=== PATIENT | male | born 1960 | race Caucasian/White ===

== ENCOUNTER 2017-08-12 12:07 | Emergency (ER) | payer OTHER ==
[2017-08-12] MEDS ORDERED: Iohexol 240 (50 ml) PO STA (13:00)
--- NOTE | 2017-08-12 13:14 | C.PDOC ---
History Of Present Illness <Shireen Sanchez - Last Filed: 08/12/17 13:15> <LopezMandy - Last Filed: 08/12/17 16:34> 57 y/o male presents to ED with c/o sharp right flank pain worse with movement for 1 month. Patient states he saw PMD had work up as outpatient and was told he had shadow on right kidney but is unsure what it was. Patient states pain has been constant since which prompted visit to ED today. Patient denies nausea , vomiting, dysuria, fever, chills or any other complaints at this time. ( KiannaMoira linoivis Lovett) History Per: Patient History/Exam Limitations: no limitations Onset/Duration Of Symptoms: Days Current Symptoms Are (Timing): Still Present <Shireen Sanchez - Last Filed: 08/12/17 13:15> <LopezMandy Yasir - Last Filed: 08/12/17 16:34> Time Seen by Provider: 08/12/17 12:48 Chief Complaint (Nursing): Abdominal Pain Past Medical History Reviewed: Historical Data, Nursing Documentation, Vital Signs - Medical History PMH: No Chronic Diseases Surgical History: No Surg Hx Family History: States: No Known Family Hx - Social History Hx Alcohol Use: No Hx Substance Use: No <Shireen Sanchez - Last Filed: 08/12/17 13:15> <JohnMandy Yasir - Last Filed: 08/12/17 16:34> Vital Signs: Last Vital Signs Temp 97.6 F 08/12/17 14:18 Pulse 62 08/12/17 14:18 Resp 18 08/12/17 14:18 BP 108/67 08/12/17 14:18 Pulse Ox 100 08/12/17 14:18 Review Of Systems Constitutional: Negative for: Fever, Chills Gastrointestinal: Positive for: Other (flank pain). Negative for: Nausea, Vomiting, Diarrhea Genitourinary: Negative for: Dysuria Skin: Negative for: Rash <Shireen Sanchez - Last Filed: 08/12/17 13:15> Physical Exam - Physical Exam Appears: Non-toxic, No Acute Distress Skin: Warm, Dry, No Rash Head: Atraumatic, Normacephalic Oral Mucosa: Moist Neck: Normal ROM, Supple Cardiovascular: Rhythm Regular Respiratory: Normal Breath Sounds, No Rales, No Rhonchi, No Wheezing Gastrointestinal/Abdominal: Soft, Tenderness (On palpation to right mid abdomen) , No Guarding, No Rebound Back: CVA Tenderness (Right sided), No Paraspinal Tenderness Extremity: Normal ROM, Capillary Refill (<2 seconds) Neurological/Psych: Oriented x3, Normal Speech, Normal Cognition, Normal Motor, Normal Sensation <Shireen Sanchez - Last Filed: 08/12/17 13:15> ED Course And Treatment O2 Sat by Pulse Oximetry: 99 (RA) Pulse Ox Interpretation: Normal <Shireen Sanchez - Last Filed: 08/12/17 13:15> - Laboratory Results Result Diagrams: 08/12/17 13:14 08/12/17 13:14 <Mandy Lopez - Last Filed: 08/12/17 16:34> Medical Decision Making <Shireen Sanchez - Last Filed: 08/12/17 13:15> <Mandy Lopez - Last Filed: 08/12/17 16:34> Medical Decision Making: Plan: CT abd/pelvis, Blood work and UA ordered. Iohexol administered (Shireen Sanchez) Disposition <Shireen Sanchez - Last Filed: 08/12/17 13:15> Discussed With : Everett Van Counseled Patient/Family Regarding: Diagnosis, Need For Followup, Rx Given - Disposition Disposition Time: 16:30 - POA Present On Arrival: None <Mandy Lopez - Last Filed: 08/12/17 16:34> - Disposition Referrals: Everett Van MD [Staff Provider] - Disposition: HOME/ ROUTINE Condition: STABLE Prescriptions: Ibuprofen [Motrin] 600 mg PO TID #15 tab Forms: [employer] (Frisian) - Clinical Impression Clinical Impression: Musculoskeletal pain - Scribe Statement The provider has reviewed the documentation as recorded by the Scribe <Shireen Sanchez - Last Filed: 08/12/17 13:15> <Mandy Lopez - Last Filed: 08/12/17 16:34> - Scribe Statement Hasmukh Jade All medical record entries made by the Scribe were at my direction and personally dictated by me. I have reviewed the chart and agree that the record accurately reflects my personal performance of the history, physical exam, medical decision making, and the department course for this patient. I have also personally directed, reviewed, and agree with the discharge instructions and disposition. (Shireen Sanchez) Addendum <Shireen Sanchez - Last Filed: 08/12/17 13:15> <Mandy Lopez - Last Filed: 08/12/17 16:34> Addendum: 08/12/17 16:24 Patient endorsed to me by Dr. Sanchez. Patient presents c/o right flank pain X 1 month. Pain is dull, increases with movement and lifting, no abdominal pain, no NVD, no symptoms. On exam Chest clear Positive right CVA tenderness (mild) Positive tenderness at right mid axillary line/flank. Labs no white count no hematuria Plan D/C to f/u with PMD Pain medication (Mandy Lopez)
[2017-08-12 13:23] LABS: BASO % 0.6 % (0.0-2.0); EOS # 0.2 K/uL (0.0-0.7); EOS % 3.7 % (0.0-4.0); HEMOGLOBIN 14.8 g/dL (12.0-18.0); LYMPH # 1.9 K/uL (1.0-4.3); MEAN CELL VOLUME 89.2 fL (80.0-94.0); MEAN CORPUSCULAR HEMOGLOBIN 30.5 pg (27.0-31.0); MEAN CORPUSCULAR HGB CONC 34.2 g/dL (33.0-37.0); MEAN PLATELET VOLUME 11.1 fL (7.2-11.7); MONO # 0.5 K/uL (0.0-0.8); MONO % 8.5 % (0.0-10.0); NEUT # 2.8 K/uL (1.8-7.0); NEUT % 52.2 % (50.0-75.0); RBC 4.85 Mil/uL (4.40-5.90); RED CELL DISTRIBUTION WIDTH 13.5 % (11.5-14.5); WHITE BLOOD COUNT 5.3 K/uL (4.8-10.8)
[2017-08-12 13:25] LABS: URINE BILIRUBIN NEGATIVE (NEGATIVE); URINE BLOOD NEGATIVE (NEGATIVE); URINE CLARITY Clear (Clear); URINE COLOR Colorless (YELLOW); URINE GLUCOSE (UA) NORMAL (Normal); URINE LEUKOCYTE ESTERASE NEG Leu/uL (Negative); URINE PROTEIN NEGATIVE (NEGATIVE); URINE UROBILINOGEN NORMAL mg/dL (0.2-1.0)
[2017-08-12] MEDS ORDERED: Iohexol 240 (50 ml) ONE (13:25)
[2017-08-12 13:39] LABS: ALB/GLOB RATIO 1.3 (1.0-2.1); ALBUMIN 4.3 g/dL (3.5-5.0); ALT/SGPT 18 U/L (21-72); AST/SGOT 28 U/L (17-59); BLOOD UREA NITROGEN 13 mg/dL (9-20); CALCIUM 8.9 mg/dl (8.6-10.4); GFR AFRICAN-AMERICAN > 60; GFR NON-AFRICAN AMERICAN > 60; LIPASE 117 U/L (23-300)
[2017-08-12 14:24] VITALS: RESP 18; O2SAT 100
[2017-08-12] MEDS ORDERED: Iodixanol 320 MG/ML 100 ML BOTTLE IV ONE (14:48)
--- NOTE | 2017-08-12 16:07 | CT ---
PROCEDURE: CT Abdomen and Pelvis with contrast HISTORY: abd pain COMPARISON: None. TECHNIQUE: Following oral and intravenous contrast administration, a CT examination of the abdomen and pelvis performed from the domes of the diaphragms to the symphysis pubis with reformatted datasets provided not only axial but also sagittal and coronal series. Contrast dose: Visipaque 320, 100 cc Radiation dose: Total exam DLP = 675.75 mGy-cm. This CT exam was performed using one or more of the following dose reduction techniques: Automated exposure control, adjustment of the mA and/or kV according to patient size, and/or use of iterative reconstruction technique. FINDINGS: Restrained motion related artifacts noted. LOWER THORAX: Trace emphysematous changes are noted at the right lower lobe inferolaterally, and there is a small hiatal hernia with lung bases otherwise unremarkable appearing. LIVER: Unremarkable. No gross lesion or ductal dilatation. GALLBLADDER AND BILE DUCTS: Contracted, no radiodense cholelithiasis. PANCREAS: Unremarkable. No gross lesion or ductal dilatation. SPLEEN: Unremarkable. ADRENALS: Unremarkable. No mass. KIDNEYS AND URETERS: 4 mm intrarenal calculus mid to lower pole right kidney. No hydronephrosis bilaterally. No solid mass. VASCULATURE: Unremarkable. No aortic aneurysm. BOWEL: The stomach is mildly distended with retained oral contrast material and a bit of food. No bowel obstruction is appreciated throughout small and large bowel loops with [id number] fecal loading throughout the colon. The distal descending colon and proximal to mid sigmoid colon segments appear collapsed limiting evaluation of the wall. Mural thickening is difficult to exclude here. No pericholecystic fluid collection or reactive changes associated to define segmental colitis. . APPENDIX: Normal appendix. PERITONEUM: Unremarkable. No free fluid. No free air. LYMPH NODES: Unremarkable. No enlarged lymph nodes. BLADDER: Unremarkable. REPRODUCTIVE: Enlarged prostate gland. BONES: No acute fracture. OTHER FINDINGS: None. IMPRESSION: 1. Collapse of the distal ascending and proximal to mid sigmoid colon limits evaluation of the wall. Limited mural thickening is difficult to exclude but there is no pericholecystic reaction or fluid collection to define segmental colitis. Clinically correlate. Remainder of the bowel is unremarkable including the appendix. 2. 4 mm intrarenal calculus mid to lower pole right kidney, nonobstructive. 3. Lesser additional findings as per above.
[2017-08-12 16:40] VITALS: BP 106/68; PULSE 61; TEMP 98.1
== END 2017-08-12 16:59 | disposition home or self-care (01) ==
LOC: C.ER 12:07
DX: M79.1 Myalgia (principal)
CPT/HCPCS: 74177; 80053; 81001; 83690; 85025; 96374; 99285; J1885; Q9966; Q9967

== ENCOUNTER 2017-12-17 19:05 | Emergency (ER) | payer OTHER ==
[2017-12-17 19:17] VITALS: BP 102/68; PULSE 67; RESP 20; TEMP 97.4; O2SAT 98
[2017-12-17] MEDS ORDERED: Acetaminophen-Codeine 300/30 mg Tab PO STA (19:33)
[2017-12-17] MEDS ORDERED: Acetaminophen-Codeine 300/30 mg Tab PO ONE (19:52)
--- NOTE | 2017-12-17 20:12 | C.PDOC ---
History Of Present Illness 57 year old male presents to the emergency department with complaints of dental pain. Time Seen by Provider: 12/17/17 19:22 Chief Complaint (Nursing): Dental Pain History Per: Patient History/Exam Limitations: no limitations Onset/Duration Of Symptoms: Hrs Current Symptoms Are (Timing): Still Present Quality: Positive for: "Pain" Past Medical History Reviewed: Historical Data, Nursing Documentation, Vital Signs Vital Signs: Last Vital Signs Temp 97.4 F L 12/17/17 19:12 Pulse 67 12/17/17 19:12 Resp 20 12/17/17 19:12 BP 102/68 12/17/17 19:12 Pulse Ox 98 12/17/17 22:18 - Medical History PMH: No Chronic Diseases Surgical History: No Surg Hx Family History: States: No Known Family Hx - Social History Hx Alcohol Use: No Hx Substance Use: No Review Of Systems Except As Marked, All Systems Reviewed And Found Negative. ENT: Positive for: Mouth Pain (dental pain) Neurological: Negative for: Weakness, Numbness Physical Exam - Physical Exam Appears: Non-toxic, No Acute Distress Skin: Warm, Dry Head: Atraumatic, Normacephalic Eye(s): bilateral: Normal Inspection Oral Mucosa: Moist Tongue: Normal Appearing, No Swelling Lips: Normal Appearing, No Swelling Teeth: Caries (right upper second molar), No Other (abscess) Gingiva: No Swelling Neck: Normal, Supple Chest: Symmetrical Neurological/Psych: Oriented x3, Normal Speech, Normal Cognition ED Course And Treatment O2 Sat by Pulse Oximetry: 98 (RA) Pulse Ox Interpretation: Normal Progress Note: Plan: Penicillin. Tylenol w/Codeine. Patient is clear for discharge and advised to follow-up with a dentist. Disposition - Disposition Referrals: [facility] [Outside] [facility] [employer] [facility] [Outside] Disposition: HOME/ ROUTINE Disposition Time: 20:09 Condition: STABLE Additional Instructions: Follow up with PMD within 1-2 days. Return to ED if feel worse. Prescriptions: Ibuprofen [Motrin Tab] 600 mg PO Q8 #30 tab Penicillin VK [Penicillin VK Tab] 500 mg PO Q6 #28 tab Acetaminophen with Codeine [Tylenol with Codeine #3 Tablet] 1 each PO .Q4-6H # 20 tablet Instructions: Dental Pain (DC) Forms: [employer] ([facility] - Clinical Impression Clinical Impression: Dental caries - PA / DECK ENGINE OPERATOR / Resident Statement MD/DO has reviewed & agrees with the documentation as recorded. - Scribe Statement The provider has reviewed the documentation as recorded by the Scribe (Alton Vargas) All medical record entries made by the Scribe were at my direction and personally dictated by me. I have reviewed the chart and agree that the record accurately reflects my personal performance of the history, physical exam, medical decision making, and the department course for this patient. I have also personally directed, reviewed, and agree with the discharge instructions and disposition.
== END 2017-12-17 20:24 | disposition home or self-care (01) ==
LOC: C.ER 19:05
DX: K02.9 Dental caries, unspecified (principal)

== ENCOUNTER 2018-04-16 13:46 | Observation (INO) | payer OTHER ==
[2018-04-16] MEDS: Sodium Chloride 0.9% 1,000 ML IV SCH (15:06)
[2018-04-16 15:20] LABS: BASO % 0.4 % (0.0-2.0); EOS # 0.2 K/uL (0.0-0.7); EOS % 2.3 % (0.0-4.0); HEMOGLOBIN 14.4 g/dL (12.0-18.0); LYMPH # 2.5 K/uL (1.0-4.3); LYMPH % 37.4 % (20.0-40.0); MEAN CELL VOLUME 89.3 fL (80.0-94.0); MEAN CORPUSCULAR HEMOGLOBIN 29.8 pg (27.0-31.0); MEAN CORPUSCULAR HGB CONC 33.3 g/dL (33.0-37.0); MEAN PLATELET VOLUME 10.8 fL (7.2-11.7); MONO # 0.5 K/uL (0.0-0.8); MONO % 7.7 % (0.0-10.0); NEUT # 3.4 K/uL (1.8-7.0); NEUT % 52.2 % (50.0-75.0); NRBC % 0.1 % (0.0-2.0); RBC 4.84 Mil/uL (4.40-5.90); RED CELL DISTRIBUTION WIDTH 13.5 % (11.5-14.5); WHITE BLOOD COUNT 6.6 K/uL (4.8-10.8)
[2018-04-16 15:35] LABS: PROTHROMBIN TIME 11.1 SECONDS (9.7-12.2)
[2018-04-16 15:46] LABS: ALB/GLOB RATIO 1.5 (1.0-2.1); ALBUMIN 4.4 g/dL (3.5-5.0); ALT/SGPT 27 U/L (21-72); AST/SGOT 23 U/L (17-59); BLOOD UREA NITROGEN 16 mg/dL (9-20); CALCIUM 8.8 mg/dl (8.6-10.4); GFR NON-AFRICAN AMERICAN > 60
--- NOTE | 2018-04-16 15:48 | CT ---
Date of service: 04/16/2018 PROCEDURE: CT HEAD WITHOUT CONTRAST. HISTORY: transient left sided weakness COMPARISON: None available. TECHNIQUE: Axial computed tomography images were obtained through the head/brain without intravenous contrast. Radiation dose: Total exam DLP = 1088.67 mGy-cm. This CT exam was performed using one or more of the following dose reduction techniques: Automated exposure control, adjustment of the mA and/or kV according to patient size, and/or use of iterative reconstruction technique. FINDINGS: HEMORRHAGE: No intracranial hemorrhage. BRAIN: No mass effect or edema. The santillan-white matter differentiation appears intact. Please note that MRI with diffusion imaging is more sensitive in the detection of acute ischemic event. VENTRICLES: No hydrocephalus. CALVARIUM: Unremarkable. PARANASAL SINUSES: Unremarkable as visualized. No significant inflammatory changes. MASTOID AIR CELLS: Unremarkable as visualized. No inflammatory changes. OTHER FINDINGS: None. IMPRESSION: No acute intracranial pathology identified.
--- NOTE | 2018-04-16 16:10 | RAD ---
HISTORY: Code Stroke COMPARISON: None available. TECHNIQUE: Chest PA and lateral FINDINGS: LUNGS: No focal consolidation. Please note that chest x-ray has limited sensitivity for the detection of pulmonary masses. PLEURA: No significant pleural effusion identified. No definite pneumothorax . CARDIOVASCULAR: Heart size appears within normal limits. No atherosclerotic calcification present. OSSEOUS STRUCTURES: Degenerative changes of the spine. VISUALIZED UPPER ABDOMEN: Unremarkable. OTHER FINDINGS: None. IMPRESSION: No focal consolidation.
--- NOTE | 2018-04-16 16:17 | C.PDOC ---
History Of Present Illness 58 year old male presents to the ED for evaluation. Patient states that he woke up from sleep three days ago and felt like there was "no blood going to his head." Patient reports experiencing dizziness, lightheadedness and left-sided facial, arm and leg weakness. Patient woke up with dizziness the next morning, but did not experience weakness. Patient states the weakness has been intermittent since. Patient reports feeling numbness to the left side of his face, states he does not feel the same sensation on both sides of his face. Patient also complains of numbness to right third finger. Patient was evaluated by a Nurse Practitioner in Dr. Van's office today and referred to the ED. Patient denies past medical history, but thinks he my have high cholesterol. Patient denies nausea, vomiting. Time Seen by Provider: 04/16/18 14:48 Chief Complaint (Nursing): Back Pain History Per: Patient History/Exam Limitations: no limitations Onset/Duration Of Symptoms: Days, Intermittent Episodes Current Symptoms Are (Timing): Still Present Additional History Per: Patient Past Medical History Reviewed: Historical Data, Nursing Documentation, Vital Signs Vital Signs: Last Vital Signs Temp 97.9 F 04/16/18 14:25 Pulse 70 04/16/18 14:25 Resp 17 04/16/18 14:25 BP 111/70 04/16/18 14:25 Pulse Ox 98 04/16/18 14:25 - Medical History PMH: No Chronic Diseases Surgical History: No Surg Hx Family History: States: Unknown Family Hx - Social History Hx Alcohol Use: No Hx Substance Use: No - Immunization History Hx Tetanus Toxoid Vaccination: No Hx Influenza Vaccination: Yes Hx Pneumococcal Vaccination: No Review Of Systems Neurological: Positive for: Numbness (right third finger), Dizziness, Other (lightheaded) Physical Exam - Physical Exam Appears: Non-toxic, No Acute Distress Skin: Normal Color, Warm, Dry Head: Atraumatic, Normacephalic Eye(s): bilateral: Normal Inspection Oral Mucosa: Moist Neck: Supple Chest: Symmetrical, No Deformity, No Tenderness Cardiovascular: Rhythm Regular, No Murmur, No Other (carotid bruit) Respiratory: Normal Breath Sounds, No Rales, No Rhonchi, No Wheezing Extremity: Normal ROM, Capillary Refill (less than 2 seconds ) Neurological/Psych: Oriented x3, Normal Speech, Normal Cognition, Normal Motor, Other (subjective decreased sensation to left side of face ) ED Course And Treatment - Laboratory Results Result Diagrams: 04/16/18 15:16 04/16/18 15:16 Lab Interpretation: Normal ECG: Interpreted By Me ECG Rhythm: Sinus Rhythm ECG Interpretation: No Acute Changes O2 Sat by Pulse Oximetry: 98 (on RA) Pulse Ox Interpretation: Normal - Radiology CXR: Viewed By Me, Read By Radiologist CXR Interpretation: Yes: No Acute Disease - CT Scan/US CT Head Other Rad Studies (CT/US): Read By Radiologist, Radiology Report Reviewed CT/US Interpretation: Accession No. : [id number]. Patient Name / ID : MALACHI LILLY / [id number]. Exam Date : 04/16/2018 15:25:24 ( Approved ). Study Comment : Sex / Age : M / [id number]. Creator : Keyanna Guido. Dictator : Valeria Ye MD. Tire Spotter : Banquet Set Up Person : Valeria Ye MD. Approver2 : Report Date : 04/16/2018 15:33:49. My Comment : . Date of service: 04/16/2018. PROCEDURE: CT HEAD WITHOUT CONTRAST. HISTORY: transient left sided weakness. COMPARISON: None available. TECHNIQUE: Axial computed tomography images were obtained through the head/brain without intravenous contrast. Radiation dose: Total exam DLP = 1088.67 mGy-cm. This CT exam was performed using one or more of the following dose reduction techniques: Automated exposure control, adjustment of the mA and/or kV according to patient size, and/or use of iterative reconstruction technique. FINDINGS: HEMORRHAGE: No intracranial hemorrhage. BRAIN: No mass effect or edema. The santillan-white matter differen tiation appears intact. Please note that MRI with diffusion imaging is more sensitive in the detection of acute ischemic event. VENTRICLES: No hydrocephalus. CALVARIUM: Unremarkable. PARANASAL SINUSES: Unremarkable as visualized. No significant inflammatory changes. MASTOID AIR CELLS: Unrem arkable as visualized. No inflammatory changes. OTHER FINDINGS: None. IMPRESSION: No acute intracranial pathology identified. Progress Note: Bloodwork, CT Head, CXR, EKG ordered and reviewed. IV Fluids given. Reevaluation Time: 16:20 Reassessment Condition: Unchanged - Physician Consult Information Time Consulting Physician Contacted: 16:17 Physician Contacted: Everett Van Outcome Of Conversation: Patient to be admitted to tele observation for neurologic consultation for possible TIA. NIHSS Stroke Scale - Date/Time Evaluation Performed Date Performed: 04/16/18 Time Performed: 15:00 - How Severe is the Stoke Level of Consciousness: 0=Alert LOC to Questions: 0=Both comments correct LOC to commands: 0=Obeys both correctly Best Gaze: 0=Normal Visual: 0=No visual loss Facial: 0=Normal Motor Arm - Left: 0=No drift Motor Arm - Right: 0=No drift Motor Leg - Left: 0=No drift Motor Leg - Right: 0=No drift Limb Ataxia: 0=Absent Sensory: 0=Normal Best Language: 0=No aphasia Dysarthia: 0=Normal articulation Extinction & Inattention (Neglect): 0=Normal, no object Score: 0 Disposition - Disposition Disposition: HOSPITALIZED Disposition Time: 16:21 Condition: STABLE - POA Present On Arrival: None - Clinical Impression Clinical Impression: TIA (transient ischemic attack) - Scribe Statement The provider has reviewed the documentation as recorded by the Scribe (Heena Lyles) Provider Attestation: All medical record entries made by the Scribe were at my direction and personally dictated by me. I have reviewed the chart and agree that the record accurately reflects my personal performance of the history, physical exam, medical decision making, and the department course for this patient. I have also personally directed, reviewed, and agree with the discharge instructions and disposition.
[2018-04-16 19:14] VITALS: RESP 20
--- NOTE | 2018-04-16 23:17 | CP.PCM.HP ---
Past Patient History - Past Social History Smoking Status: Never Smoked - PSYCHIATRIC Hx Substance Use: No - SURGICAL HISTORY Hx Surgeries: No - ANESTHESIA Hx Anesthesia: No Meds Allergies/Adverse Reactions: Allergies Allergy/AdvReac Type Severity Reaction Status Date / Time No Known Allergies Allergy Verified 04/16/18 14:30 Results - Vital Signs Recent Vital Signs: Last Vital Signs Temp 97.6 F 04/16/18 17:25 Pulse 78 04/16/18 20:57 Resp 20 04/16/18 17:25 BP 113/69 04/16/18 17:25 Pulse Ox 100 04/16/18 17:25 - Labs Result Diagrams: 04/16/18 15:16 04/16/18 15:16 Labs: Laboratory Results - last 24 hr 04/16/18 04/16/18 04/16/18 15:16 15:16 15:16 WBC 6.6 RBC 4.84 Hgb 14.4 Hct 43.2 MCV 89.3 MCH 29.8 MCHC 33.3 RDW 13.5 Plt Count 149 MPV 10.8 Neut % (Auto) 52.2 Lymph % (Auto) 37.4 Wake % (Auto) 7.7 Eos % (Auto) 2.3 Baso % (Auto) 0.4 Neut # (Auto) 3.4 Lymph # (Auto) 2.5 Wake # (Auto) 0.5 Eos # (Auto) 0.2 Baso # (Auto) 0.0 PT 11.1 INR 1.0 APTT 33 Sodium 140 Potassium 3.8 Chloride 102 Carbon Dioxide 30 Anion Gap 12 BUN 16 Creatinine 0.8 Est GFR ( Amer) > 60 Est GFR (Non-Af Amer) > 60 Random Glucose 120 H D Calcium 8.8 Total Bilirubin 0.5 AST 23 ALT 27 Alkaline Phosphatase 46 Troponin I < 0.0120 Total Protein 7.4 Albumin 4.4 Globulin 3.0 Albumin/Globulin Ratio 1.5 Blood Type Antibody Screen 04/16/18 16:11 WBC RBC Hgb Hct MCV MCH MCHC RDW Plt Count MPV Neut % (Auto) Lymph % (Auto) Wake % (Auto) Eos % (Auto) Baso % (Auto) Neut # (Auto) Lymph # (Auto) Wake # (Auto) Eos # (Auto) Baso # (Auto) PT INR APTT Sodium Potassium Chloride Carbon Dioxide Anion Gap BUN Creatinine Est GFR ( Amer) Est GFR (Non-Af Amer) Random Glucose Calcium Total Bilirubin AST ALT Alkaline Phosphatase Troponin I Total Protein Albumin Globulin Albumin/Globulin Ratio Blood Type O POSITIVE Antibody Screen Negative
[2018-04-17 01:18] VITALS: TEMP 97.9
[2018-04-17] MEDS: Sodium Chloride 0.9% 1,000 ML IV SCH ×2 (02:00→12:11)
[2018-04-17 07:16] LABS: HDL CHOLESTEROL 31 mg/dL (30-70)
[2018-04-17 07:27] LABS: LDL CHOLESTEROL 140 mg/dL (0-129)
[2018-04-17 08:32] VITALS: BP 109/68; PULSE 66; O2SAT 97
--- NOTE | 2018-04-17 09:26 | CP.PCM.CON ---
<Shaista Villeda - Last Filed: 04/17/18 12:38> History of Present Illness - History of Present Illness History of Present Illness: Neurology consult Patient is a 58 yo M with no PMHx who presents with complaints of 3 days of dizziness, lightheadedness, intermittent left sided weakness, and left facial sensory deficit. Additionally, pt reported numbness to right hand third finger. Patient presented to primary for evaluation of symptoms and was advised to go to the ED. Review of Systems - EENT Eyes: absent: Change in Vision - Cardiovascular Cardiovascular: absent: Chest Pain, Palpitations - Respiratory Respiratory: absent: Dyspnea - Gastrointestinal Gastrointestinal: absent: Nausea - Musculoskeletal Musculoskeletal: absent: Abnormal Gait - Neurological Neurological: Numbness (right 3rd finger), Focal Weakness (intermittent left sided weakness), Sensory Deficit (left side of face) Past Patient History - Past Social History Smoking Status: Never Smoked - PSYCHIATRIC Hx Substance Use: No - SURGICAL HISTORY Hx Surgeries: No - ANESTHESIA Hx Anesthesia: No Meds Allergies/Adverse Reactions: Allergies Allergy/AdvReac Type Severity Reaction Status Date / Time No Known Allergies Allergy Verified 04/16/18 14:30 - Medications Medications: Current Medications Aspirin (Ecotrin) 81 mg PO DAILY [facility] Enoxaparin Sodium (Lovenox) 40 mg SC DAILY [facility] Sodium Chloride (Sodium Chloride 0.9%) 1,000 mls @ 100 mls/hr IV .Q10H [facility] Last Admin: 04/17/18 02:00 Dose: Not Given Rosuvastatin Calcium (Crestor) 5 mg PO HS [facility] Last Admin: 04/16/18 21:40 Dose: 5 mg Physical Exam - Constitutional Appears: Non-toxic, No Acute Distress - Head Exam Head Exam: NORMAL INSPECTION - Eye Exam Eye Exam: EOMI, Normal appearance - ENT Exam ENT Exam: Mucous Membranes Moist, Normal Exam - Neck Exam Neck exam: Positive for: Normal Inspection - Respiratory Exam Respiratory Exam: NORMAL BREATHING PATTERN. absent: Respiratory Distress - Cardiovascular Exam Cardiovascular Exam: REGULAR RHYTHM - GI/Abdominal Exam GI & Abdominal Exam: Soft. absent: Distended - Extremities Exam Extremities exam: Positive for: normal capillary refill, normal inspection - Neurological Exam Neurological exam: Alert, Oriented x3 Additional comments: No visual deficit motor strength equal and symmetric, 5/5 - Psychiatric Exam Psychiatric exam: Normal Affect, Normal Mood - Skin Skin Exam: Dry, Intact, Normal Color, Warm Results - Vital Signs Recent Vital Signs: Last Vital Signs Temp 97.9 F 04/17/18 07:30 Pulse 66 04/17/18 07:30 Resp 20 04/17/18 07:30 BP 109/68 04/17/18 07:30 Pulse Ox 97 04/17/18 07:30 - Labs Result Diagrams: 04/16/18 15:16 04/16/18 15:16 Labs: Laboratory Results - last 24 hr 04/16/18 04/16/18 04/16/18 15:16 15:16 15:16 WBC 6.6 RBC 4.84 Hgb 14.4 Hct 43.2 MCV 89.3 MCH 29.8 MCHC 33.3 RDW 13.5 Plt Count 149 MPV 10.8 Neut % (Auto) 52.2 Lymph % (Auto) 37.4 Foster % (Auto) 7.7 Eos % (Auto) 2.3 Baso % (Auto) 0.4 Neut # (Auto) 3.4 Lymph # (Auto) 2.5 Foster # (Auto) 0.5 Eos # (Auto) 0.2 Baso # (Auto) 0.0 PT 11.1 INR 1.0 APTT 33 Sodium 140 Potassium 3.8 Chloride 102 Carbon Dioxide 30 Anion Gap 12 BUN 16 Creatinine 0.8 Est GFR ( Amer) > 60 Est GFR (Non-Af Amer) > 60 Random Glucose 120 H D Calcium 8.8 Total Bilirubin 0.5 AST 23 ALT 27 Alkaline Phosphatase 46 Troponin I < 0.0120 Total Protein 7.4 Albumin 4.4 Globulin 3.0 Albumin/Globulin Ratio 1.5 Triglycerides Cholesterol LDL Cholesterol Direct HDL Cholesterol Vitamin B12 TSH 3rd Generation Blood Type Antibody Screen 04/16/18 04/17/18 04/17/18 16:11 06:56 06:56 WBC RBC Hgb Hct MCV MCH MCHC RDW Plt Count MPV Neut % (Auto) Lymph % (Auto) Foster % (Auto) Eos % (Auto) Baso % (Auto) Neut # (Auto) Lymph # (Auto) Foster # (Auto) Eos # (Auto) Baso # (Auto) PT INR APTT Sodium Potassium Chloride Carbon Dioxide Anion Gap BUN Creatinine Est GFR ( Amer) Est GFR (Non-Af Amer) Random Glucose Calcium Total Bilirubin AST ALT Alkaline Phosphatase Troponin I Total Protein Albumin Globulin Albumin/Globulin Ratio Triglycerides 166 H Cholesterol 202 H LDL Cholesterol Direct 140 H HDL Cholesterol 31 Vitamin B12 276 TSH 3rd Generation 1.51 Blood Type O POSITIVE Antibody Screen Negative Assessment & Plan - Assessment and Plan (Free Text) Assessment: 58 year old male who has herniated disc at C5, C6 resulting in cervical radicul opathy and dizziness. MRI does not show evidence of stroke. Plan: -d/c home with rehab and PT -f/u with neurology in 1 month Shaista Villeda, PGY-1 I examined the patient and agree with the assessment and plan. I saw the patient independently and formulated the plan. Dr. ballesteros neurology <Angelique Ballesteros - Last Filed: 04/17/18 21:08> Results - Vital Signs Recent Vital Signs: Last Vital Signs Temp 97.9 F 04/17/18 07:30 Pulse 66 04/17/18 07:30 Resp 20 04/17/18 07:30 BP 109/68 04/17/18 07:30 Pulse Ox 97 04/17/18 07:30 - Labs Result Diagrams: 04/16/18 15:16 04/16/18 15:16 Labs: Laboratory Results - last 24 hr 04/17/18 04/17/18 04/17/18 06:56 06:56 10:48 Triglycerides 166 H Cholesterol 202 H LDL Cholesterol Direct 140 H HDL Cholesterol 31 Vitamin B12 276 TSH 3rd Generation 1.51 Urine Color Urine Clarity Urine pH Ur Specific Rhodes Urine Protein Urine Glucose (UA) Urine Ketones Urine Blood Urine Nitrate Urine Bilirubin Urine Urobilinogen Ur Leukocyte Esterase Urine WBC (Auto) Urine RBC (Auto) Urine Opiates Screen Negative Urine Methadone Screen Negative Ur Barbiturates Screen Negative Ur Phencyclidine Scrn Negative Ur Amphetamines Screen Negative U Benzodiazepines Scrn Negative U Oth Cocaine Metabols Negative U Cannabinoids Screen Negative 04/17/18 10:48 Triglycerides Cholesterol LDL Cholesterol Direct HDL Cholesterol Vitamin B12 TSH 3rd Generation Urine Color Yellow Urine Clarity Clear Urine pH 6.0 Ur Specific Rhodes 1.013 Urine Protein Negative Urine Glucose (UA) Normal Urine Ketones Negative Urine Blood Negative Urine Nitrate Negative Urine Bilirubin Negative Urine Urobilinogen Normal Ur Leukocyte Esterase Neg Urine WBC (Auto) < 1 Urine RBC (Auto) < 1 Urine Opiates Screen Urine Methadone Screen Ur Barbiturates Screen Ur Phencyclidine Scrn Ur Amphetamines Screen U Benzodiazepines Scrn U Oth Cocaine Metabols U Cannabinoids Screen
[2018-04-17] MEDS ORDERED: Enoxaparin 40 mg Syringe SC SCH (10:00)
[2018-04-17 11:14] LABS: URINE BILIRUBIN NEGATIVE (NEGATIVE); URINE BLOOD NEGATIVE (NEGATIVE); URINE CLARITY Clear (Clear); URINE COLOR Yellow (YELLOW); URINE GLUCOSE (UA) NORMAL (Normal); URINE LEUKOCYTE ESTERASE NEG Leu/uL (Negative); URINE PROTEIN NEGATIVE (NEGATIVE); URINE UROBILINOGEN NORMAL mg/dL (0.2-1.0)
--- NOTE | 2018-04-17 12:13 | MRI ---
Date of service: 04/17/2018 PROCEDURE: MRI BRAIN WITH AND WITHOUT CONTRAST HISTORY: cva COMPARISON: Comparison is made to the previous CT of the head dated 04/16/2018 TECHNIQUE: Multiplanar, multisequence MR images of the brain were obtained with and without intravenous contrast enhancement. FINDINGS: HEMORRHAGE: None DWI: No evidence of an acute or early subacute infarction. BRAIN PARENCHYMA: No mass,mass effect or edema. Mild volume loss is noted. ENHANCEMENT: No abnormal intracranial enhancement. VENTRICLES: Unremarkable. No hydrocephalus. CRANIUM: Unremarkable. ORBITS: Grossly unremarkable. PARANASAL SINUSES/MASTOIDS: Clear VASCULAR SYSTEM: Skull base flow voids intact. OTHER FINDINGS: None . IMPRESSION: No evidence of acute intracranial hemorrhage or acute infarction. Mild volume loss.
--- NOTE | 2018-04-17 12:25 | MRI ---
Date of service: 04/17/2018 PROCEDURE: MR CERVICAL SPINE WITH AND WITHOUT CONTRAST HISTORY: radiculopathy COMPARISON: None available. TECHNIQUE: Multiecho multiplanar sequences were performed through the cervical spine with and without the use of intravenous contrast. FINDINGS: Normal lordotic curvature. Craniocervical junction unremarkable. Vertebral body heights preserved. No marrow signal abnormality. Normal cervical cord. No paraspinal abnormality. No abnormal enhancement C2-3: No disc herniation, spinal canal stenosis or neural foraminal narrowing. C3-4: No disc herniation, spinal canal stenosis or neural foraminal narrowing. C4-5: No disc herniation, spinal canal stenosis or neural foraminal narrowing. C5-C6: There is a central posterior bulging disc associated with mild posterior ligament hypertrophy which resulting in mild spinal stenosis. C6-C7: Broad-based bulging dex associated with posterior ligament hypertrophy which resulting in mild spinal and right neural foramina stenosis. C7-T1: No disc herniation, spinal canal stenosis or neural foraminal narrowing. OTHER FINDINGS: None. IMPRESSION: Bulging disc at C5-C6 and C6-C7 resulting in mild spinal stenosis . Mild right neural foraminal narrowing at C6-C7 also noted.
--- NOTE | 2018-04-17 13:11 | CP.PCM.PN ---
Subjective - Date & Time of Evaluation Date of Evaluation: 04/17/18 Time of Evaluation: 12:30 - Subjective Subjective: Patient seen today , denies any chest pain, sob, numbness, tinglings or any weakness No overnight events reported by RN labs and vss reviewed - stable Objective - Vital Signs/Intake and Output Vital Signs (last 24 hours): Temp Pulse Resp BP Pulse Ox 97.9 F 66 20 109/68 97 04/17/18 07:30 04/17/18 07:30 04/17/18 07:30 04/17/18 07:30 04/17/18 07:30 - Medications Medications: Current Medications Aspirin (Ecotrin) 81 mg PO DAILY [facility] Last Admin: 04/17/18 12:12 Dose: 81 mg Enoxaparin Sodium (Lovenox) 40 mg SC DAILY [facility] Last Admin: 04/17/18 12:11 Dose: Not Given Rosuvastatin Calcium (Crestor) 5 mg PO HS [facility] Last Admin: 04/16/18 21:40 Dose: 5 mg - Labs Labs: 04/16/18 15:16 04/16/18 15:16 PT 11.1 SECONDS (9.7-12.2) 04/16/18 15:16 INR 1.0 04/16/18 15:16 APTT 33 SECONDS (21-34) 04/16/18 15:16 Assessment and Plan - Assessment and Plan (Free Text) Assessment: A/P 58 yo M with no PMHx who presents with complaints of 3 days of dizziness, lightheadedness, intermittent left sided weakness, and left facial sensory deficit. MRI- negative seen by Dr. Ferro - neurology cleared for discharge home from neurology standpoint D/w Dr. Van, cleared for discharge home and f/u with PMD in 1 week Discharge plan discussed with patient , who understands and agrees with plan Patient instructed to returns to ED if symptoms returns
[2018-04-17 13:29] LABS: BARBITURATES, UR NEGATIVE (NEGATIVE); BENZODIAZEPINES, UR NEGATIVE (NEGATIVE); OPIATES, UR NEGATIVE (NEGATIVE); PHENCYCLIDINE, UR NEGATIVE (NEGATIVE)
--- NOTE | 2018-04-17 18:34 | CARD ---
APPROVED REPORT Date of service: 04/16/2018 EKG Measurement Heart [id number] <Conclusion> Normal sinus rhythm with sinus arrhythmia Possible Left atrial enlargement Borderline ECG
--- NOTE | 2018-04-17 21:58 | CP.PCM.DIS ---
Provider - Provider Date of Admission: 04/16/18 16:23 Attending physician: Everett Van MD Consults: 04/16/18 20:03 Neurology Consult Routine Comment: Consulting Provider: Angelique Portillo Consulting Physician: Angelique Portillo Reason for Consult: TIA Hospital Course - Lab Results Lab Results: Most Recent Lab Values WBC 6.6 K/uL (4.8-10.8) 04/16/18 15:16 RBC 4.84 Mil/uL (4.40-5.90) 04/16/18 15:16 Hgb 14.4 g/dL (12.0-18.0) 04/16/18 15:16 Hct 43.2 % (35.0-51.0) 04/16/18 15:16 MCV 89.3 fL (80.0-94.0) 04/16/18 15:16 MCH 29.8 pg (27.0-31.0) 04/16/18 15:16 MCHC 33.3 g/dL (33.0-37.0) 04/16/18 15:16 RDW 13.5 % (11.5-14.5) 04/16/18 15:16 Plt Count 149 K/uL (130-400) 04/16/18 15:16 MPV 10.8 fL (7.2-11.7) 04/16/18 15:16 Neut % (Auto) 52.2 % (50.0-75.0) 04/16/18 15:16 Lymph % (Auto) 37.4 % (20.0-40.0) 04/16/18 15:16 Norton % (Auto) 7.7 % (0.0-10.0) 04/16/18 15:16 Eos % (Auto) 2.3 % (0.0-4.0) 04/16/18 15:16 Baso % (Auto) 0.4 % (0.0-2.0) 04/16/18 15:16 Neut # (Auto) 3.4 K/uL (1.8-7.0) 04/16/18 15:16 Lymph # (Auto) 2.5 K/uL (1.0-4.3) 04/16/18 15:16 Norton # (Auto) 0.5 K/uL (0.0-0.8) 04/16/18 15:16 Eos # (Auto) 0.2 K/uL (0.0-0.7) 04/16/18 15:16 Baso # (Auto) 0.0 K/uL (0.0-0.2) 04/16/18 15:16 PT 11.1 SECONDS (9.7-12.2) 04/16/18 15:16 INR 1.0 04/16/18 15:16 APTT 33 SECONDS (21-34) 04/16/18 15:16 Sodium 140 mmol/L (132-148) 04/16/18 15:16 Potassium 3.8 mmol/L (3.6-5.2) 04/16/18 15:16 Chloride 102 mmol/L (98-107) 04/16/18 15:16 Carbon Dioxide 30 mmol/L (22-30) 04/16/18 15:16 Anion Gap 12 (10-20) 04/16/18 15:16 BUN 16 mg/dL (9-20) 04/16/18 15:16 Creatinine 0.8 mg/dL (0.8-1.5) 04/16/18 15:16 Est GFR ( Amer) > 60 04/16/18 15:16 Est GFR (Non-Af Amer) > 60 04/16/18 15:16 Random Glucose 120 mg/dL (75-110) H D 04/16/18 15:16 Calcium 8.8 mg/dl (8.6-10.4) 04/16/18 15:16 Total Bilirubin 0.5 mg/dL (0.2-1.3) 04/16/18 15:16 AST 23 U/L (17-59) 04/16/18 15:16 ALT 27 U/L (21-72) 04/16/18 15:16 Alkaline Phosphatase 46 U/L (38-126) 04/16/18 15:16 Troponin I < 0.0120 ng/mL (0.00-0.120) 04/16/18 15:16 Total Protein 7.4 g/dL (6.3-8.3) 04/16/18 15:16 Albumin 4.4 g/dL (3.5-5.0) 04/16/18 15:16 Globulin 3.0 gm/dL (2.2-3.9) 04/16/18 15:16 Albumin/Globulin Ratio 1.5 (1.0-2.1) 04/16/18 15:16 Triglycerides 166 mg/dL (0-149) H 04/17/18 06:56 Cholesterol 202 mg/dL (0-199) H 04/17/18 06:56 LDL Cholesterol Direct 140 mg/dL (0-129) H 04/17/18 06:56 HDL Cholesterol 31 mg/dL (30-70) 04/17/18 06:56 Vitamin B12 276 pg/mL (239-931) 04/17/18 06:56 TSH 3rd Generation 1.51 mIU/L (0.46-4.68) 04/17/18 06:56 Urine Color Yellow (YELLOW) 04/17/18 10:48 Urine Clarity Clear (Clear) 04/17/18 10:48 Urine pH 6.0 (5.0-8.0) 04/17/18 10:48 Ur Specific Marion 1.013 (1.003-1.030) 04/17/18 10:48 Urine Protein Negative mg/dL (NEGATIVE) 04/17/18 10:48 Urine Glucose (UA) Normal mg/dL (Normal) 04/17/18 10:48 Urine Ketones Negative mg/dL (NEGATIVE) 04/17/18 10:48 Urine Blood Negative (NEGATIVE) 04/17/18 10:48 Urine Nitrate Negative (NEGATIVE) 04/17/18 10:48 Urine Bilirubin Negative (NEGATIVE) 04/17/18 10:48 Urine Urobilinogen Normal mg/dL (0.2-1.0) 04/17/18 10:48 Ur Leukocyte Esterase Neg Edgard/uL (Negative) 04/17/18 10:48 Urine WBC (Auto) < 1 /hpf (0-5) 04/17/18 10:48 Urine RBC (Auto) < 1 /hpf (0-3) 04/17/18 10:48 Urine Opiates Screen Negative (NEGATIVE) 04/17/18 10:48 Urine Methadone Screen Negative (NEGATIVE) 04/17/18 10:48 Ur Barbiturates Screen Negative (NEGATIVE) 04/17/18 10:48 Ur Phencyclidine Scrn Negative (NEGATIVE) 04/17/18 10:48 Ur Amphetamines Screen Negative (NEGATIVE) 04/17/18 10:48 U Benzodiazepines Scrn Negative (NEGATIVE) 04/17/18 10:48 U Oth Cocaine Metabols Negative (NEGATIVE) 04/17/18 10:48 U Cannabinoids Screen Negative (NEGATIVE) 04/17/18 10:48 Blood Type O POSITIVE 04/16/18 16:11 Antibody Screen Negative 04/16/18 16:11 Discharge Exam - Head Exam Head Exam: NORMAL INSPECTION Discharge Plan - Discharge Medications Prescriptions: Rosuvastatin Calcium [Crestor] 5 mg PO HS #30 tab - Follow Up Plan Condition: STABLE Disposition: HOME/ ROUTINE Instructions: Transient Ischemic Attack (DC), Rosuvastatin Referrals: Everett Van MD [Staff Provider] -
--- NOTE | 2018-04-18 06:51 | CARD ---
APPROVED REPORT Date of service: 04/17/2018 EXAM: Two-dimensional and M-mode echocardiogram with Doppler and color Doppler. Other Information Quality : GoodRhythm : INDICATION CVA/TIA Dizziness and Vertigo 2D DIMENSIONS IVSd0.6 (0.7-1.1cm)Aortic Root (2D)3.0 (2.0-3.7cm) LVDd4.6 (3.9-5.9cm)PWd0.7 (0.7-1.1cm) LA Mqreok45 (18-58mL)LVDs3.1 (2.5-4.0cm) FS (%) 33.3 %LVEF (%)62.0 (>50%) LVEF (Wright's)74.44 %IVC0.00 cm M-Mode DIMENSIONS RVDd2.81 (2.1-3.2cm)Left Atrium (MM)2.80 (2.5-4.0cm) IVSd0.83 (0.7-1.1cm)Aortic Root3.14 (2.2-3.7cm) LVDd4.91 (4.0-5.6cm)Aortic Cusp Exc.1.96 (1.5-2.0cm) PWd0.68 (0.7-1.1cm)FS (%) 35 % LVDs3.19 (2.0-3.8cm)TAPSE23.08 cm LVEF (%)64 (>50%) Mitral Valve MV E Hznvdidg740.5cm/sMV A Cmkzchbw51.4cm/sE/A ratio2.2 TDI Lateral E' Peak V13.45cm/sMedial E' Peak V8.22cm/sE/Lateral E'8.0 E/Medial E'13.1 Tricuspid Valve TR Peak Otdervoh304yi/sTR Peak Gr.[id number] LEFT VENTRICLE The left ventricle is normal size. There is normal left ventricular wall thickness. Left ventricle systolic function is normal. The Ejection Fraction is >70%. There is normal LV segmental wall motion. The left ventricular diastolic function is normal. RIGHT VENTRICLE The right ventricle is normal size. There is normal right ventricular wall thickness. The right ventricular systolic function is normal. ATRIA The left atrium size is normal. The right atrium size is normal. The interatrial septum is intact with no evidence for an atrial septal defect. AORTIC VALVE The aortic valve is normal in structure. No aortic regurgitation is present. There is no aortic valvular stenosis. There is no aortic valvular vegetation. MITRAL VALVE The mitral valve is normal in structure. There is no evidence of mitral valve prolapse. There is no mitral valve stenosis. Mitral regurgitation is mild. TRICUSPID VALVE The tricuspid valve is normal in structure. There is mild tricuspid regurgitation. Right ventricular systolic pressure is estimated at less than 30 mmHg. There is no pulmonary hypertension. PULMONIC VALVE The pulmonic valve is not well visualized. There is mild pulmonic valvular regurgitation. GREAT VESSELS The aortic root is normal in size. PERICARDIAL EFFUSION There is no significant pericardial effusion. <Conclusion> Left ventricle systolic function is normal. The Ejection Fraction is >70%. No aortic regurgitation is present. Mitral regurgitation is mild. There is mild tricuspid regurgitation. There is no pulmonary hypertension. There is mild pulmonic valvular regurgitation.
--- NOTE | 2018-04-18 07:04 | DS ---
DISCHARGE DIAGNOSES: 1. Cervical radiculopathy. 2. Hyperlipidemia. HISTORY OF PRESENT ILLNESS: This is a 58-year-old male with left-sided neck pain, jaw pain, and left arm tingling and numbness, who was admitted with a suspicion of TIA. The patient was admitted to the floor, started on neuro check. MRI of the brain and neck was done, and it showed cervical radiculopathy, and the patient is being discharged. Cardiac enzymes x3 negative. The patient is stable. He is being discharged with outpatient followup. CONDITION UPON DISCHARGE: Stable. The patient's EKG is normal sinus rhythm with no acute ST-T changes. PHYSICAL EXAMINATION: VITAL SIGNS: Blood pressure 109/68, pulse 66, respiratory rate 20, and temperature 97.9. LABORATORIES: WBC 3.6, hemoglobin 15.4, hematocrit 43.2, platelets 149. PT, PTT normal. Sodium 140, potassium 3.8, chloride 102, bicarb 30, BUN 16, creatinine 0.8. LDL 140. CONDITION UPON DISCHARGE: Stable. The patient will do strict low fat diet to low down his cholesterol. Everett Van MD
--- NOTE | 2018-04-20 13:02 | VASCLAB ---
Date of service: 04/17/2018 PROCEDURE: Carotid Duplex Exam. HISTORY: TIA COMPARISON: None available. TECHNIQUE: Grayscale and duplex Doppler evaluation of the cervical carotid and vertebral arteries were performed. The common carotid, carotid bifurcations and cervical Internal Carotid Artery (ICA) and proximal External Carotid Artery (ECA) were evaluated. The vertebral arteries were evaluated for gross patency and flow direction. Report prepared by Bill Delgado, BS, RVT FINDINGS: RIGHT CAROTID ARTERIES: 1. Common Carotid Artery: No significant focal plaque formation of the right common carotid artery. Maximum Peak Systolic velocity: 99 cm/sec: End-diastolic velocity 30 cm/sec. 2. Carotid Bifurcation: plaque formation. Maximum Peak Systolic velocity: 104 cm/sec: End-diastolic velocity 29 cm/sec. 3. Internal Carotid Artery: Plaque description: 3.1. Proximal Segment: Peak systolic velocity 69 cm/sec: End-diastolic velocity 20 cm/sec - % stenosis 0-15% 3.2. Middle Segment: Peak systolic velocity 65 cm/sec: End-diastolic velocity 28 cm/sec - % stenosis 0-15% 3.3. Distal Segment: Peak systolic velocity 58 cm/sec: End-diastolic velocity 22 cm/sec - % stenosis 0-15% 4. External Carotid Artery: No significant focal plaque formation. Peak systolic velocity 66 cm/sec 5. ICA/CCA Ratio: 1.1 LEFT CAROTID ARTERIES: 1. Common Carotid Artery: No significant focal plaque formation of the left common carotid artery. Maximum Peak Systolic velocity: 96 cm/sec: End-diastolic velocity 32 cm/sec. 2. Carotid Bifurcation: plaque formation. Maximum Peak Systolic velocity: 124 cm/sec: End-diastolic velocity 38 cm/sec. 3. Internal Carotid Artery: Plaque description: 3.1. Proximal Segment: Peak systolic velocity 85 cm/sec: End-diastolic velocity 23 cm/sec - % stenosis 0-15% 3.2. Middle Segment: Peak systolic velocity 81 cm/sec: End-diastolic velocity 36 cm/sec - % stenosis 0-15% 3.3. Distal Segment: Peak systolic velocity 55 cm/sec: End-diastolic velocity 24 cm/sec - % stenosis 0-15% 4. External Carotid Artery: No significant focal plaque formation. Peak systolic velocity 75 cm/sec 5. ICA/CCA Ratio: 1.3 VERTEBRAL ARTERIES: 1. Right Vertebral Artery: The right vertebral artery flow direction is antegrade. 2. Left Vertebral Artery: The left vertebral artery flow direction is antegrade. OTHER FINDINGS: 1. Right Brachial Blood pressure: 106 mmHg. 2. Left Brachial Blood pressure: 100 mmHg. 3. No atherosclerotic calcification present IMPRESSION: RIGHT: Duplex scan does not suggest hemodynamically significant stenosis of the right extracranial carotid arteries. LEFT: Duplex scan does not suggest hemodynamically significant stenosis of the left extracranial carotid arteries.
== END 2018-04-17 14:00 | disposition home or self-care (01) ==
LOC: C.ER 13:46 → C.9E 16:23 → C.6T 16:43
PROVIDERS: ADMIT Internal Medicine; ATTEND Internal Medicine
DX: M54.12 Radiculopathy, cervical region (principal); E78.5 Hyperlipidemia, unspecified; I65.29 Occlusion and stenosis of unspecified carotid artery
CPT/HCPCS: 36415; 70450; 70553; 71046; 72156; 80053; 80061; 80324; 80345; 80346; 80349; 80353; 80358; 80361; 81001; 82607; 83992; 84443; 84484; 85025; 85610; 85730; 86850; 86900; 93005; 93306; 93880; 99285; G0378; J7030